=== PATIENT | female | born 1980 | race Caucasian/White ===

== ENCOUNTER 2017-09-17 04:28 | Emergency (ER) | payer SELFPAY ==
[~2017-09-17] VITALS: Ht 175.3 cm; Wt 110.6 kg
[2017-09-17 05:33] LABS: ADD MIUA? YES; BILIRUBIN NEGATIVE; BLOOD NEGATIVE; COLOR YELLOW ((YELLOW)); GLUCOSE (STRIP) NEGATIVE; KETONES 80; LEUKOCYTES NEGATIVE; NITRITE NEGATIVE; PROTEIN (STRIP) 30; SPECIFIC GRAVITY 1.029 (1.000-1.030); UROBILINOGEN 0.2 MG/DL (0.2-1.0)
[2017-09-17 05:35] LABS: INTERNAL CONTROL VALID? YES
[2017-09-17 05:37] LABS: BACTERIA NONE SEEN /HPF; EPITHELIAL CELLS 1+ /HPF; MUCUS 4+ /LPF; UCUL ADDED? NO; WHITE BLOOD CELLS 0-5 /HPF (0-5)
[2017-09-17 05:43] LABS: ADD MEDTOX COMMENT Y; AMPHETAMINE PRESUMPTIVE POSITIVE (500 ng/mL); BARBITURATES NEGATIVE (200 ng/mL); BENZODIAZEPINES NEGATIVE (150 ng/mL); COCAINE NEGATIVE (150 ng/mL); INTERNAL CONTROLS VALID? YES; METHADONE PRESUMPTIVE POSITIVE (200 ng/mL); METHAMPHETAMINE NEGATIVE (500 ng/mL); OPIATES (MORPHINE) PRESUMPTIVE POSITIVE (100 ng/mL); OXYCODONE NEGATIVE (100 ng/mL); PHENCYCLIDINE NEGATIVE (25 ng/mL); PROPOXYPHENE NEGATIVE (300 ng/mL); THC CANNABINOIDS NEGATIVE (50 ng/mL); TRICYCLIC ANTIDEPRESSANTS NEGATIVE (300 ng/mL)
[2017-09-17 06:30] LABS: HEMATOCRIT 39.6 % (36.0-46.0); MCH 28.7 PG (29.0-34.0); MCHC 33.6 G/DL (30.0-36.0); MCV 85.3 FL (83-99); MEAN PLAT.VOLUME 12.4 uM^3 (9.5-12.4); PLATELET COUNT 213 K/uL (156-360); RBC DIS.WIDTH-CV 13.6 % (11.8-14.6); RBC DIS.WIDTH-SD 42.5 % (39-53); RED BLOOD COUNT 4.64 M/uL (3.80-5.20); WHITE BLOOD COUNT 8.7 K/uL (4.1-10.2)
[2017-09-17 06:40] LABS: CHLORIDE 107 mEq/L (99-109); POTASSIUM 4.3 mEq/L (3.7-5.4); SODIUM 136 mEq/L (136-147)
[2017-09-17 06:42] LABS: GLUCOSE 138 mg/dL (70-99)
[2017-09-17 06:43] LABS: ANION GAP 10 MEQ/L (2-14)
[2017-09-17 06:46] LABS: GFR ESTIMATE (CALCULATED) > 59 mL/min/
[2017-09-17 06:47] LABS: UREA NITROGEN (BUN) 14 mg/dL (9-23)
[2017-09-17] MEDS ORDERED: ZANAFLEX4 MG PO (06:55)
[2017-09-17] MEDS ORDERED: NORCO 5/3251 TABLET PO (06:55)
[2017-09-17] MEDS ORDERED: MEDROL DOSEPAK4 MG PO (06:55)
[2017-09-17 07:00] VITALS: BP 119/71
== END 2017-09-17 08:17 | disposition home or self-care (01) ==
LOC: EME 04:28
PROVIDERS: Emergency Medicine
DX: M54.5 Low back pain (principal); G89.29 Other chronic pain; Z88.0 Allergy status to penicillin; F17.200 Nicotine dependence, unspecified, uncomplicated; M48.061 Spinal stenosis, lumbar region without neurogenic claudication; M51.36 Other intervertebral disc degeneration, lumbar region; F19.10 Other psychoactive substance abuse, uncomplicated
CPT/HCPCS: 72131; 80048; 81003; 84703; 84999; 85027; 99281; 99285; J2270; J7030